=== PATIENT | male | born 1945 | race Two or more races ===

== ENCOUNTER → 2016-06-03 | Outpatient (CLI) | payer MEDICARE ==
[~2016-06-03] VITALS: Ht 167.6 cm; Wt 133.0 kg
[~2016-06-03] MED LIST: ACET-66 PO; ALLO100T PO; AMLO-511 PO; ASPI-1093 PO; CARV25 PO; CLON.2 PO; DICL4100G TP; DULA0.75 SQ; FLUT16H NASAL; FURO80 PO; HUMLIS7525 SQ; HYDR25 PO; INSLAN SQ; INSU10VI4 SQ; ISOS60TA4 PO; LEVO25TA9 PO; LEVO50 PO; LORA1TAB3 PO; MULT1TAB70 PO; OMEP20 PO; ROSU10 PO; SUCR1TAB PO
[2016-06-03 11:23] VITALS: BP 152/56
== END | disposition home or self-care (01) ==
LOC: SRCNTR 10:54
PROVIDERS: ATTEND Internal Medicine Cardiovascular Disease
DX: I12.9 Hypertensive chronic kidney disease with stage 1 through stage 4 chronic kidney disease, or unspecified chronic kidney disease (principal); N18.4 Chronic kidney disease, stage 4 (severe); I50.9 Heart failure, unspecified; E11.9 Type 2 diabetes mellitus without complications; E78.5 Hyperlipidemia, unspecified; E66.9 Obesity, unspecified; R60.0 Localized edema; M19.90 Unspecified osteoarthritis, unspecified site
CPT/HCPCS: G0463